=== PATIENT | female | born 2000 | race Caucasian/White ===

== ENCOUNTER → 2021-01-21 | Outpatient (CLI) | payer BC ==
--- NOTE | 2021-01-21 09:56 | Diagnostic Imaging Report ---
PROCEDURE: US Thyroid. TECHNIQUE: Multiple real-time grayscale images were obtained of the thyroid in various projections. INDICATION: Thyromegaly, hair loss, weight gain. COMPARISON: None available. FINDINGS: The right lobe of thyroid gland measures 4.3 x 1.5 x 1.4 cm. The left lobe of thyroid gland measures 3.8 x 1.1 x 1.2 cm. The thyroid gland maintains a homogeneous echotexture without discrete nodule. The isthmus is unremarkable. IMPRESSION: Unremarkable examination. No discrete thyroid nodule. Dictated by: Dictated on workstation # [id number]
== END ==
LOC: RAD 09:19
PROVIDERS: ATTEND Physician Assistant
DX: E01.0 Iodine-deficiency related diffuse (endemic) goiter (principal); L65.9 Nonscarring hair loss, unspecified
CPT/HCPCS: 76536